=== PATIENT | female | born 1995 | race African-American/Black ===

== ENCOUNTER 2022-08-20 21:53 | Emergency (ER) | payer SELFPAY ==
[~2022-08-20] VITALS: Ht 170.2 cm; Wt 86.5 kg
[2022-08-20 22:27] VITALS: BP 134/88
== END 2022-08-21 02:11 | disposition left against medical advice (07) ==
LOC: ER 21:53
DX: Z53.21 Procedure and treatment not carried out due to patient leaving prior to being seen by health care provider (principal)

== ENCOUNTER 2025-03-14 02:21 | Emergency (ER) | payer OTHER ==
[~2025-03-14] VITALS: Ht 170.2 cm; Wt 98.0 kg
[2025-03-14 02:40] VITALS: BP 142/93; PULSE 97; RESP 16; TEMP 36.8; O2SAT 100
[2025-03-14] MEDS ORDERED: CEFTRIAXONE SODIUM 500MG VIAL IM ONE (03:15)
[2025-03-14 04:42] LABS: CLARITY URINE CLEAR (CLEAR); COLOR URINE YELLOW (YELLOW); GLUCOSE URINE NEGATIVE (NEGATIVE); KETONES URINE NEGATIVE (NEGATIVE); LEUKOCYTE ESTERASE URINE NEGATIVE (NEGATIVE); NITRITE URINE NEGATIVE (NEGATIVE); OCCULT BLOOD URINE NEGATIVE (NEGATIVE); PH URINE 5.5 (4.5-8.0); PROTEIN URINE NEGATIVE (NEGATIVE); SPECIFIC GRAVITY URINE 1.024 (1.005-1.030); UROBILINOGEN URINE 0.2 E.U./dL (0.2-1.0)
[2025-03-15 13:08] LABS: CHLAMYDIA TRACHOMATIS NAA Negative (Negative); NEISSERIA GONORRHOEAE NAA Negative (Negative)
== END 2025-03-14 04:12 | disposition left against medical advice (07) ==
LOC: ER 02:21
DX: N89.8 Other specified noninflammatory disorders of vagina (principal); R50.9 Fever, unspecified; Z53.21 Procedure and treatment not carried out due to patient leaving prior to being seen by health care provider
CPT/HCPCS: 81003; 87491; 87591